=== PATIENT | male | born 1965 | race Caucasian/White ===

== ENCOUNTER 2018-03-17 04:32 | Observation (INO) | payer OTHER ==
--- NOTE | 2018-03-17 04:33 | PDOC ---
History of Present Illness <Amber Lazaro - Last Filed: 03/17/18 06:19> - General History Source: Patient <Nicole Lynch - Last Filed: 03/19/18 22:01> - General Chief Complaint: Chest Pain Stated Complaint: CHEST PAINS Time Seen by Provider: 03/17/18 04:33 - History of Present Illness Initial Comments: 03/17/18 04:49 52 year old male woke up with midsternal chest pain radiating to the mid back with diaphoresis prior to arrival. patient received 2 nitro tabs and now reports pain is 7 out of 10. denies nausea/ vomiting, abdominal pain, shortness of breath. PMHX: [place] , hypertension, borderline diabetes Cardiology: dr. Callejas (Nicole Lynch) Past History <Amber Lazaro - Last Filed: 03/17/18 06:19> - Past Medical History HTN: Yes - Suicide/Smoking/Psychosocial Hx Smoking Status: No Smoking History: Never smoked Number of Cigarettes Smoked Daily: 0 <Nicole Lynch - Last Filed: 03/19/18 22:01> - Past Medical History Allergies/Adverse Reactions: Allergies Allergy/AdvReac Type Severity Reaction Status Date / Time No Known Allergies Allergy Verified 03/17/18 04:43 Home Medications: Ambulatory Orders Aspirin [ASA -] 81 mg PO DAILY 03/17/18 Losartan Potassium [Cozaar] 100 mg PO DAILY 03/17/18 *Physical Exam - Physical Exam General Appearance: Yes: Appropriately Dressed, Mild Distress Respiratory/Chest: positive: Lungs Clear, Normal Breath Sounds Cardiovascular: positive: Regular Rhythm, Regular Rate Gastrointestinal/Abdominal: positive: Normal Bowel Sounds, Soft Extremity: positive: Normal Capillary Refill, Normal Inspection, Normal Range of Motion Integumentary: positive: Normal Color, Dry, Warm Neurologic: positive: Fully Oriented, Alert <Nicole Lynch - Last Filed: 03/19/18 22:01> - Vital Signs Last Vital Signs Temp Pulse Resp BP Pulse Ox 98.1 F 71 18 147/92 98 03/19/18 21:11 03/19/18 21:11 03/19/18 21:11 03/19/18 21:11 03/19/18 21:00 Heart Score/ECG Review <Amber Lazaro - Last Filed: 03/17/18 06:19> - History History: Moderately suspicious - Electrocardiogram EKG: Non specific repolarization disturbance - Age Age: 45-65 - Risk Factors Risk Factors Heart Score: Yes Hx Hypercholesterolemia, Yes Hx Hypertension, Yes Hx Diabetes Based on the list above the patient has:: >/=3 risk factors or Hx atherosclerotic disease <Nicole Lynch - Last Filed: 03/19/18 22:01> - ECG Intrepretation Comment:: 03/17/18 04:59 NSR: 76 bpm inferolateral flipped Ts (Nicole Lynch) ED Treatment Course - LABORATORY CBC & Chemistry Diagram: 03/17/18 04:55 03/17/18 04:55 <Amber Lazaro - Last Filed: 03/17/18 06:19> - LABORATORY CBC & Chemistry Diagram: 03/17/18 04:55 03/19/18 05:30 <Nicole Lynch - Last Filed: 03/19/18 22:01> - ADDITIONAL ORDERS Additional order review: 03/17/18 04:55 RBC 4.21 MCV 93.4 MCHC 33.7 RDW 13.2 MPV 10.2 Neutrophils % 55.9 Lymphocytes % 33.3 Monocytes % 6.4 Eosinophils % 3.8 Basophils % 0.6 - RADIOLOGY Radiology Studies Ordered: Category Date Time Status CHEST PA & LAT [RAD] Stat Radiology 03/17/18 04:34 Completed - Medications Given in the ED: ED Medications Discontinued Medications Generic Name Dose Route Start Last Admin Trade Name Freq PRN Reason Stop Dose Admin Amlodipine Besylate 10 mg 03/17/18 10:47 03/17/18 10:59 Norvasc - PO 03/17/18 10:48 10 mg ONCE ONE Administration Amlodipine Besylate 5 mg 03/18/18 10:00 03/18/18 09:13 Norvasc - PO 5 mg DAILY TONNY Administration Amlodipine Besylate 5 mg 03/18/18 20:30 03/18/18 20:25 Norvasc - PO 03/18/18 20:31 5 mg NOW ONE Administration Aspirin 162 mg 03/17/18 04:54 03/17/18 05:15 Asa - PO 03/17/18 04:55 162 mg ONCE ONE Administration Atorvastatin Calcium 40 mg 03/17/18 10:15 03/17/18 11:00 Lipitor - PO 03/17/18 10:16 40 mg ONCE ONE Administration Heparin Sodium (Porcine) 5,000 unit 03/17/18 10:00 03/18/18 17:04 Heparin - SQ 5,000 unit Q8H-IV TONNY Administration Sodium Chloride 1,000 mls @ 75 mls/hr 03/17/18 12:30 03/17/18 15:56 Normal Saline - IV 03/18/18 00:29 75 mls/hr ASDIR TONNY Administration Labetalol HCl 10 mg 03/17/18 08:02 03/17/18 08:17 Normodyne Injection - IVPUSH 03/17/18 08:03 10 mg ONCE ONE Administration Labetalol HCl 100 mg 03/17/18 22:00 03/19/18 10:09 Normodyne - PO 100 mg BID TONNY Administration Labetalol HCl 100 mg 03/18/18 20:30 03/18/18 20:30 Normodyne - PO 03/18/18 20:31 100 mg NOW ONE Administration Losartan Potassium 100 mg 03/17/18 06:11 03/17/18 06:30 Cozaar - PO 03/17/18 06:12 100 mg ONCE ONE Administration Metoprolol Succinate 50 mg 03/17/18 06:55 03/17/18 07:33 Toprol Xl - PO 03/17/18 06:56 50 mg ONCE ONE Administration Metoprolol Tartrate 5 mg 03/17/18 06:55 03/17/18 07:33 Lopressor Injection - IVPUSH 03/17/18 06:56 5 mg ONCE ONE Administration Morphine Sulfate 4 mg 03/17/18 04:53 03/17/18 05:15 Morphine Injection - IVPUSH 03/17/18 04:54 4 mg ONCE ONE Administration Morphine Sulfate 0.5 mg 03/18/18 00:51 03/18/18 01:01 Morphine Sulfate IVPUSH 03/18/18 00:52 0.5 mg ONCE ONE Administration Medical Decision Making <Amber Lazaro - Last Filed: 03/17/18 06:19> <Nicole Lynch - Last Filed: 03/19/18 22:01> - Medical Decision Making 03/17/18 05:33 A: chest pain P; chest xray labs morphine aspirin oxygen obs admit? 03/17/18 06:58 pending sign out to hospitalist team 07: 00 patient pending dispo signed out to Rossana MCDOWELL (Nicole Lynch) *DC/Admit/Observation/Transfer - Discharge Dispostion Decision to Admit order: Yes <Amber Lazaro - Last Filed: 03/17/18 06:19> <Nicole Lynch - Last Filed: 03/19/18 22:01> Diagnosis at time of Disposition: Hypertensive crisis Chest pain Qualifiers: Chest pain type: other chest pain Qualified Code(s): R07.89 - Other chest pain - Discharge Dispostion Condition at time of disposition: Stable
[2018-03-17] MEDS ORDERED: morphine CARPU-JECT 4 MG/1 ML DISP.SYRIN IVPUSH ONE (04:53)
[2018-03-17] MEDS ORDERED: ASPIRIN 81 MG CHEWABLE TABLETS PO ONE (04:54)
[2018-03-17] MEDS ORDERED: ASPIRIN 81 MG CHEWABLE TABLETS ONE (05:04)
[2018-03-17] MEDS ORDERED: morphine SULFATE 4 MG/ML VIAL ONE (05:04)
[2018-03-17 05:09] LABS: BASO % 0.6 % (0-2.0); EOS % 3.8 % (0-4.5); HEMATOCRIT 39.3 % (35.4-49); HEMOGLOBIN 13.3 GM/dL (11.7-16.9); LYMPH % 33.3 % (8-40); MCH 31.5 pg (25.7-33.7); MCHC 33.7 g/dl (32.0-35.9); MEAN CELL VOLUME 93.4 fl (80-96); MEAN PLT VOLUME 10.2 fl (7.5-11.1); MONO % 6.4 % (3.8-10.2); NEUT % 55.9 % (42.8-82.8); PLATELET COUNT 172 K/MM3 (134-434); RBC 4.21 M/mm3 (4.00-5.60); RDW 13.2 % (11.9-15.9); WHITE BLOOD COUNT 6.4 K/mm3 (4.0-10.0)
[2018-03-17 05:22] LABS: INR 0.88 (0.83-1.09)
[2018-03-17 05:39] LABS: ALBUMIN 3.8 g/dl (3.4-5.0); ALK PHOS 81 U/L (45-117); ANION GAP 9 MMOL/L (8-16); BILIRUBIN,TOTAL 0.3 mg/dL (0.2-1); BLOOD UREA NITROGEN 20 mg/dL (7-18); CALCIUM 8.8 mg/dL (8.5-10.1); CHLORIDE 104 mmol/L (98-107); CO2 28 mmol/L (21-32); CREATININE 1.5 mg/dL (0.55-1.3); GLUCOSE,RANDOM 127 mg/dL (74-106); MAGNESIUM 2.2 mg/dL (1.8-2.4); N-TERMINAL BNP 63.7 pg/ml (5-125); POTASSIUM 3.5 mmol/L (3.5-5.1); SGOT/AST 14 U/L (15-37); SGPT/ALT 34 U/L (13-61); SODIUM 142 mmol/L (136-145); TOT PROT 6.9 g/dl (6.4-8.2)
[2018-03-17] MEDS ORDERED: LOSARTAN POTASSIUM 50 MG TABLET (FP) PO ONE (06:11)
[2018-03-17] MEDS ORDERED: METOPROLOL TARTRATE 5 MG/5 ML VIAL IVPUSH ONE (06:55)
[2018-03-17] MEDS ORDERED: METOPROLOL TARTRATE 50 MG TABLET (FP) ONE (07:21)
[2018-03-17] MEDS ORDERED: METOPROLOL TARTRATE 5 MG/5 ML VIAL ONE (07:21)
[2018-03-17] MEDS ORDERED: LABETALOL HCL 5 MG/1 ML (100MG/20 ML VIAL) IVPUSH ONE (08:02)
--- NOTE | 2018-03-17 08:08 | HP ---
CHIEF COMPLAINT: left upper back pain/chest pain PCP: none Cardio: Dr. Callejas HISTORY OF PRESENT ILLNESS: 52 yr old man with HTN, hx of AR(12 yrs ago) present with sudden onset of left upper back pain radiating to his left arm that woke him from sleep at 3AM, it was 10/10, continuous, aching, lasting until he received nitroglycerin by EMT, pain is reproducible and nonpositional. associated with dizziness. was in his usual state of health yesterday, without any complaints. denies recent strenous activities, high salt dietary indiscretions. was on tribenzor for past 2 yrs but had to stop due to loss of insurance coverage. started on losartan 100mg daily for past 3 months. takes ASA 81mg 2- 3x a week. 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 all healthy Smoking:never Alcohol:denies Drugs: never Family History: mother with type II DM, father 85yrs olf without medical hx, paternal uncle with AR age 58, Allergies No Known Allergies Allergy (Verified 03/17/18 04:43) HOME MEDICATIONS: Home Medications Medication Instructions Recorded Aspirin [ASA -] 81 mg PO DAILY 03/17/18 Losartan Potassium [Cozaar] 100 mg PO DAILY 03/17/18 REVIEW OF SYSTEMS CONSTITUTIONAL: Absent: fever, chills, diaphoresis, generalized weakness, malaise, loss of appetite, weight change HEENT: Absent: rhinorrhea, nasal congestion, throat pain, throat swelling, difficulty swallowing, mouth swelling, ear pain, eye pain, visual changes CARDIOVASCULAR: Absent: chest pain, syncope, palpitations, irregular heart rate, lightheadedness , peripheral edema RESPIRATORY: Absent: cough, shortness of breath, dyspnea with exertion, orthopnea, wheezing, stridor, hemoptysis GASTROINTESTINAL: Absent: abdominal pain, abdominal distension, nausea, vomiting, diarrhea, constipation, melena, hematochezia GENITOURINARY: Absent: dysuria, frequency, urgency, hesitancy, hematuria, flank pain MUSCULOSKELETAL: Present: back pain, Absent: myalgia, arthralgia, joint swelling, neck pain SKIN: Absent: rash, itching, pallor HEMATOLOGIC/IMMUNOLOGIC: Absent: easy bleeding, easy bruising, lymphadenopathy, frequent infections ENDOCRINE: Absent: unexplained weight gain, unexplained weight loss, heat intolerance, cold intolerance NEUROLOGIC: Present: dizziness, Absent: headache, focal weakness or paresthesias, unsteady gait, seizure, mental status changes, bladder or bowel incontinence PSYCHIATRIC: Absent: anxiety, depression, suicidal or homicidal ideation, hallucinations. PHYSICAL EXAMINATION Vital Signs - 24 hr 03/17/18 03/17/18 03/17/18 04:37 05:20 06:31 Temperature 98.2 F Pulse Rate [ 77 75 Left Radial] Respiratory 79 H 16 17 Rate Blood Pressure 162/97 Blood Pressure 172/104 169/111 [Right Arm] O2 Sat by Pulse 96 97 98 Oximetry (%) 03/17/18 03/17/18 03/17/18 07:33 07:34 07:48 Temperature Pulse Rate [ 67 Left Radial] Respiratory 14 Rate Blood Pressure 170/110 Blood Pressure 170/110 [Right Arm] O2 Sat by Pulse 96 96 Oximetry (%) GENERAL: Awake, alert, and fully oriented, in no acute distress. HEAD: Normal with no signs of trauma. EYES: Pupils equal, round and reactive to light, extraocular movements intact, sclera anicteric, conjunctiva clear. No lid lag. EARS, NOSE, THROAT: Ears normal, nares patent, oropharynx clear without exudates. Moist mucous membranes. NECK: Normal range of motion, supple without lymphadenopathy, JVD, or masses. LUNGS: Breath sounds equal, clear to auscultation bilaterally. No wheezes, and no crackles. No accessory muscle use. HEART: Regular rate and rhythm, normal S1 and S2 without murmur, rub or gallop. ABDOMEN: Soft, nontender, not distended, normoactive bowel sounds, no guarding, no rebound, no masses. No hepatomegaly or splenomegaly. MUSCULOSKELETAL: Normal range of motion at all joints. No bony deformities or tenderness. No CVA tenderness. left scapula and below scapula region tender to deep palpation. left shoulder pain with movement. no swelling, erythema, or warmth. skin is intact. UPPER EXTREMITIES: 2+ radal pulses, warm, well-perfused. No cyanosis. No clubbing. No peripheral edema. LOWER EXTREMITIES: 2+ DP pulses, warm, well-perfused. No calf tenderness. No peripheral edema. NEUROLOGICAL: Cranial nerves II-XII intact. Normal speech. facial symmetry, 5/ 5 with b/l handgrip, shoulder/elbow extension and flexion. PSYCHIATRIC: Cooperative. Good eye contact. Appropriate mood and affect. SKIN: Warm, dry, normal turgor, no rashes or lesions noted, normal capillary refill. Laboratory Results - last 24 hr 03/17/18 03/17/18 03/17/18 04:55 04:55 04:55 WBC 6.4 RBC 4.21 Hgb 13.3 Hct 39.3 MCV 93.4 MCH 31.5 MCHC 33.7 RDW 13.2 Plt Count 172 MPV 10.2 Absolute Neuts (auto) 3.6 Neutrophils % 55.9 Lymphocytes % 33.3 Monocytes % 6.4 Eosinophils % 3.8 Basophils % 0.6 Nucleated RBC % 0 PT with INR 10.00 INR 0.88 Sodium 142 Potassium 3.5 Chloride 104 Carbon Dioxide 28 Anion Gap 9 BUN 20 H Creatinine 1.5 H Creat Clearance w eGFR 49.15 Random Glucose 127 H Calcium 8.8 Magnesium 2.2 Total Bilirubin 0.3 AST 14 L ALT 34 Alkaline Phosphatase 81 Creatine Kinase 186 Creatine Kinase Index 0.5 CK-MB (CK-2) < 1.0 Troponin I 0.02 B-Natriuretic Peptide 63.7 Total Protein 6.9 Albumin 3.8 ASSESSMENT/PLAN: 52 yr old man with left upper back pain found to have uncontrolled elevated BP placed on observation to r/o ACS and control BP. #r/o ACS, heart score 5, JUSTIN 1 - trend cardiac enzymes, repeat EKG - check lipid profile and A1c for risk stratification, start on statin and daily ASA - continuous cardiac monitoring - pain control with tylenol 650mg po if pt requests - cardiology consult: Dr. Perez #HTN Urgency - received labetalol IVPB 10mg, metoprolol 50mg po, losartan 100mg po, amlodipine - hold ARB due to STACIA, if continues to stay elevated consider nitroglycerin patch for pain and BP - goal to decr BP gradually over 24hrs to 150/80 #STACIA - likely pre-renal from elevated BP - if continuous to worsen will investigate further with u/a, renal ultrasound - given elevated BP, encourage oral hydration #Diet: low sodium/diabetic diet # DVT: heparin TID Visit type - Emergency Visit Emergency Visit: Yes ED Registration Date: 03/17/18 Care time: The patient presented to the Emergency Department on the above date and was hospitalized for further evaluation of their emergent condition. - New Patient This patient is new to me today: Yes Date on this admission: 03/17/18 - Critical Care Critical Care patient: No Hospitalist Screening - Colonoscopy Questionnaire Colonoscopy Questionnaire: Colonoscopy Questionnaire - Patient: 50 - 75 years old and never had a screening colonoscopy: Yes History of colon or rectal polyps, or CA: Unknown History of IBD, Crohn's disease or UC: Unknown History of abdominal radiation therapy as a child: Unknown - Relative: 1 with colon or rectal CA, or polyps at age 60 or younger: Unknown Colon or rectal CA diagnosed at age 45 or younger: Unknown Multiple relatives with colon or rectal CA: Unknown - Outcome: Screening Result: Positive Screen
[2018-03-17] MEDS ORDERED: LABETALOL HCL 5 MG/1 ML (200MG/40ML VIAL) IVPB ONE (08:10)
[2018-03-17 09:22] LABS: CHOLESTEROL 201 mg/dL (50-200); HDL CHOLESTEROL 45 mg/dL (40-60); TRIGLYCERIDES 172 mg/dL (0-150)
[2018-03-17] MEDS ORDERED: HEPARIN NA (PORCINE) 5,000 UNITS/ML 1ML VIAL ONE (10:04)
[2018-03-17] MEDS: HEPARIN NA (PORCINE) 5,000 UNITS/ML 1ML VIAL SQ SCH ×2 (10:14→17:27)
[2018-03-17] MEDS ORDERED: ATORVASTATIN CA 40 MG TABLET (FP) PO ONE (10:15)
--- NOTE | 2018-03-17 10:45 | CON.CARD ---
Consult Consult Specialty:: Cardiology Referred by:: Leti Reason for Consultation:: chest pain - History of Present Illness Chief Complaint: chest pain History of Present Illness: 52M h/o HTN, NC 12 years ago p/w l upper back pain radiating to L arm, woke up from sleep this morning at 3 AM. 04/04, continuous, improved wtih NTG. Pain is not positional. no dyspnea, diaphoresis. Has h/o HTN, poor diet compliance and history of med noncompliance but endorses taking meds currently. In the ER rios improved with morphine. EKG shows sinus mikey, LVH, 1st deg AVB, TWI V5- 6. BP 170s/100s. Received labetolol 10 mg IV, metoprolol 50 mg PO and losartan 100 mg. Cr 1.5. His primary complaint is back/left shoulder pain, per patient this was worse than usual last night but has had for at least a year. also notes an episode yesterday of bilateral jaw pain radiating to L arm. He had this years ago and says at that time a cath. reportedly this was for NC, but patient now denies this. Sees Dr. Callejas in clinic. - History Source History Provided By: Patient - Past Medical History Cardio/Vascular: Yes: HTN - Alcohol/Substance Use Hx Alcohol Use: No - Smoking History Smoking history: Never smoked Have you smoked in the past 12 months: No Aproximately how many cigarettes per day: 0 Home Medications - Allergies Allergies/Adverse Reactions: Allergies Allergy/AdvReac Type Severity Reaction Status Date / Time No Known Allergies Allergy Verified 03/17/18 04:43 - Home Medications Home Medications: Ambulatory Orders Aspirin [ASA -] 81 mg PO DAILY 03/17/18 Losartan Potassium [Cozaar] 100 mg PO DAILY 03/17/18 Family Disease History - Family Disease History Family History: Unremarkable Review of Systems - Review of Systems Constitutional: reports: No Symptoms Eyes: reports: No Symptoms HENT: reports: No Symptoms Neck: reports: No Symptoms Cardiovascular: reports: Chest Pain, Shortness of Breath Respiratory: reports: No Symptoms Gastrointestinal: reports: No Symptoms Genitourinary: reports: No Symptoms Musculoskeletal: reports: Back Pain, Joint Pain Integumentary: reports: No Symptoms Neurological: reports: No Symptoms Endocrine: reports: No Symptoms Hematology/Lymphatic: reports: No Symptoms Psychiatric: reports: No Symptoms Vital Signs: Vital Signs Temperature 98.2 F 03/17/18 10:16 Pulse Rate 62 03/17/18 10:16 Respiratory Rate 16 03/17/18 10:16 Blood Pressure 171/105 03/17/18 10:16 O2 Sat by Pulse Oximetry (%) 97 03/17/18 10:16 Constitutional: Yes: Well Nourished, No Distress Eyes: Yes: Conjunctiva Clear, EOM Intact HENT: Yes: Atraumatic, Normocephalic Neck: Yes: Supple, Trachea Midline Respiratory: Yes: Regular, CTA Bilaterally Gastrointestinal: Yes: Normal Bowel Sounds, Soft Renal/: Yes: WNL Cardiovascular: Yes: Regular Rate and Rhythm JVD: No Carotid Bruit: No Heart Sounds: Yes: S1, S2 Musculoskeletal: Yes: Back Pain Extremities: Yes: WNL Edema: No Peripheral Pulses WNL: Yes Peripheral Pulses: 2+ Left Doralis Pedis, 2+ Right Dorsalis Pedis Integumentary: Yes: WNL Neurological: Yes: Alert, Oriented ...Motor Strength: WNL Psychiatric: Yes: Alert, Oriented - Other Data Labs, Other Data: CBC, BMP 03/17/18 04:55 03/17/18 04:55 INR, PTT INR 0.88 (0.83-1.09) 03/17/18 04:55 Troponin, BNP 03/17/18 04:55 Troponin I 0.02 B-Natriuretic Peptide 63.7 Troponin, BNP 03/17/18 04:55 Troponin I 0.02 B-Natriuretic Peptide 63.7 Assessment/Plan EKG: sinus bradycardia, 1st deg AVB, LVH, TWI V5-V6 CXR: no acute process 52M h/o HTN, NC 12 years ago p/w l upper back pain radiating to L arm Chest/back pain - trop neg x 2, no prior EKG for comparision since 2003, TWI noted - no prior EKG for comparison - back pain is chronic and appears musculoskeletal, reproducible with palpation and worsens with position - episode of jaw pain with diaphoresis and sob history concerning for cardiac etiology - will obtain clinic records, patient thinks he had a stress test in last 1- 2years HTN - on metoprolol, amlodipine - holding home losartan in setting of STACIA, baseline Cr not known HLD - reviewed lipid panel, agree with moderate intensity statin STACIA - baselne Cr unknown - holding losartan
[2018-03-17] MEDS ORDERED: amLODIPine BESYLATE 10 MG TABLET (FP) PO ONE (10:47)
[2018-03-17 11:34] VITALS: BMI 34.8
[2018-03-17] MEDS: ACETAMINOPHEN 325 MG TABLET (FP) PO PRN ×2 (12:09→19:35)
[2018-03-17] MEDS ORDERED: SODIUM CHLORIDE 1,000 ML IV SCH (12:30)
--- NOTE | 2018-03-17 12:31 | PN ---
Teaching Attending Note Name of Resident: Neel Padron ATTENDING PHYSICIAN STATEMENT I saw and evaluated the patient. I reviewed the resident's note and discussed the case with the resident. I agree with the resident's findings and plan as documented. SUBJECTIVE: very poor historian 52 y/o man with h/o NM, HTN, HLP, and chronic L upper back pain who presented with worsening L upper shoulder pain, and severe hypertension . reports chronic L upper posterior chest pain, which was worse this am at 3 and woke him up form sleep. He checked his BP ans was > 200/100. he experienced 30 min of pressure in his anterior neck this am and that's when he randolph dEMS. Nitro helped partially. pain in L upper back is in shoulder too. he reprts sweating and SOB when pain happened. in ER he was given severeal Iv and PO BP meds and ASA . He had NM 12 yrs ago, and had cath in [facility], per family report is neg . he thinks he had a stress test 1 yr ago, and declines regular f/u withhis PCP. he uses ASA 3 times a week . not on any statin.of note he recently ( 3 months) was switched to losartan due to insurance coverage. Now on floor, L posterior shoulder pain persists, but neck pain and sweating is no longer present . No SOB or palpitations OBJECTIVE: NAD, MMM, EOMi, round equal pupils, tongue at mid line . Cv: RRR, no MRG lungs: CTAB Abd: soft, NT, ND , NL BS, Ext: no edema , no erythema , no fungal infection MS: TTP in L upper posterior back and worse with shoulder movement. no erythema or shoulder effusion ASSESSMENT AND PLAN: 52 y/o man with h/o NM, HTN, HLP, and chronic L upper back pain who presented with worsening L upper shoulder pain, and severe hypertension . He was found to have severe hypertension and renal failure 1- HTN urgency. Not clear if renal failure is acute ( ? HTN emergency). SBP 200 at home ,171 now - received norvasc , and po lsartan . and IV labetalol and lopressor . - will hold losartan due to ? STACIA - will start labetalol and norvasc - slowly drop BP - will monitor for need for additionsla treatments today 2- Chest pain: L posterior shoulder pain in chronic , reproducible and not concerning for ACS. could be due to pinched nerve the 30 min neck pressure this am in setting of HTN, is concerning though. EKG with TWI in inferiolateral leads. not clear if new or old. J point elevation in V2 - repeat EKG not changes . - trop nl x1 , repeat - tele - case d/w Dr. Gerard. ast stress test results to be obtained form office . if not recent enough then might need one and echo too . - asa daily - start statin. hyperlipidemia noted - BP control 3- Renal failure , not clear whether acute or chronic. will try to obtain records. could be due to HTN . - try gentle hydration - hold ARB 4- DVT Px 4- DVT PX
--- NOTE | 2018-03-17 15:26 | EKG ---
Test Reason : Blood Pressure : / mmHG Vent. Rate : 059 BPM Atrial Rate : 059 BPM P-R Int : 222 ms QRS Dur : 094 ms QT Int : 430 ms P-R-T Axes : 047 033 032 degrees QTc Int : 425 ms SINUS BRADYCARDIA WITH 1ST DEGREE A-V BLOCK MINIMAL VOLTAGE CRITERIA FOR LVH, MAY BE NORMAL VARIANT CANNOT RULE OUT ANTERIOR INFARCT , AGE UNDETERMINED ABNORMAL ECG WHEN COMPARED WITH ECG OF 17-MAR-2018 08:26, NO SIGNIFICANT CHANGE WAS FOUND Confirmed by MD Jomar, Henri ([id number]) on 03/17/2018 3:26:27 PM Referred By: Confirmed By:Henri Hadley MD
--- NOTE | 2018-03-17 15:28 | EKG ---
Test Reason : Blood Pressure : / mmHG Vent. Rate : 066 BPM Atrial Rate : 066 BPM P-R Int : 200 ms QRS Dur : 090 ms QT Int : 414 ms P-R-T Axes : 041 033 026 degrees QTc Int : 434 ms NORMAL SINUS RHYTHM MINIMAL VOLTAGE CRITERIA FOR LVH, MAY BE NORMAL VARIANT NONSPECIFIC T WAVE ABNORMALITY ABNORMAL ECG WHEN COMPARED WITH ECG OF 17-MAR-2018 04:32, NO SIGNIFICANT CHANGE WAS FOUND Confirmed by MD Jomar, Henri ([id number]) on 03/17/2018 3:27:34 PM Referred By: Confirmed By:Henri Hadley MD
--- NOTE | 2018-03-17 15:28 | EKG ---
Test Reason : Blood Pressure : / mmHG Vent. Rate : 076 BPM Atrial Rate : 076 BPM P-R Int : 178 ms QRS Dur : 088 ms QT Int : 412 ms P-R-T Axes : 045 033 -77 degrees QTc Int : 463 ms NORMAL SINUS RHYTHM T WAVE ABNORMALITY, CONSIDER LATERAL ISCHEMIA PROLONGED QT ABNORMAL ECG WHEN COMPARED WITH ECG OF 12-MAY-2005 07:48, NON-SPECIFIC CHANGE IN ST SEGMENT IN INFERIOR LEADS ST LESS ELEVATED IN ANTERIOR LEADS NON-SPECIFIC CHANGE IN ST SEGMENT IN LATERAL LEADS Confirmed by MD Jomar, Henri ([id number]) on 03/17/2018 3:27:46 PM Referred By: Confirmed By:Henri Hadley MD
[2018-03-17] MEDS: LABETALOL HCL 100 MG TABLET (FP) PO SCH (21:14)
[2018-03-18] MEDS ORDERED: MORPHINE SULFATE 2 MG/ML VIAL IVPUSH ONE (00:51)
[2018-03-18] MEDS: HEPARIN NA (PORCINE) 5,000 UNITS/ML 1ML VIAL SQ SCH ×4 (01:22→23:30)
[2018-03-18 06:51] LABS: ANION GAP 8 MMOL/L (8-16); BLOOD UREA NITROGEN 15 mg/dL (7-18); CALCIUM 8.9 mg/dL (8.5-10.1); CHLORIDE 102 mmol/L (98-107); CO2 29 mmol/L (21-32); CREATININE 1.1 mg/dL (0.55-1.3); GLUCOSE,RANDOM 107 mg/dL (74-106); POTASSIUM 4.4 mmol/L (3.5-5.1); SODIUM 140 mmol/L (136-145)
[2018-03-18] MEDS: ACETAMINOPHEN 325 MG TABLET (FP) PO PRN (08:38)
[2018-03-18] MEDS: LABETALOL HCL 100 MG TABLET (FP) PO SCH ×2 (09:13→20:26)
[2018-03-18] MEDS ORDERED: amLODIPine BESYLATE 5 MG TABLET (FP) PO SCH (10:00)
--- NOTE | 2018-03-18 10:23 | PN ---
Progress Note (short form) - Note Progress Note: s: feels better today. no chest pain, palps, dizzy, dyspnea. has L arm pain. tele: sinus Current Medications Acetaminophen (Tylenol -) 650 mg PO Q6H PRN PRN Reason: Fever Or Pain Last Admin: 03/18/18 08:38 Dose: 650 mg Amlodipine Besylate (Norvasc -) 5 mg PO DAILY [facility] Last Admin: 03/18/18 09:13 Dose: 5 mg Atorvastatin Calcium (Lipitor -) 40 mg PO HS [facility] Heparin Sodium (Porcine) (Heparin -) 5,000 unit SQ Q8H-IV TONNY Last Admin: 03/18/18 09:13 Dose: 5,000 unit Sodium Chloride (Normal Saline -) 1,000 mls @ 75 mls/hr IV ASDIR [facility] Last Admin: 03/17/18 15:56 Dose: 75 mls/hr Labetalol HCl (Normodyne -) 100 mg PO BID [facility] Last Admin: 03/18/18 09:13 Dose: 100 mg Vital Signs Period Temp Pulse Resp BP Sys/Laws Pulse Ox Last 24 Hr 97.8 F-98.5 F 60-71 18-18 141-161/88-102 97-97 Constitutional: Yes: Well Nourished, No Distress Eyes: Yes: Conjunctiva Clear, EOM Intact HENT: Yes: Atraumatic, Normocephalic Neck: Yes: Supple, Trachea Midline Respiratory: Yes: Regular, CTA Bilaterally Gastrointestinal: Yes: Normal Bowel Sounds, Soft Renal/: Yes: WNL Cardiovascular: Yes: Regular Rate and Rhythm JVD: No Carotid Bruit: No Heart Sounds: Yes: S1, S2 Musculoskeletal: Yes: Back Pain Extremities: Yes: WNL Edema: No Peripheral Pulses WNL: Yes Peripheral Pulses: 2+ Left Doralis Pedis, 2+ Right Dorsalis Pedis Integumentary: Yes: WNL Neurological: Yes: Alert, Oriented ...Motor Strength: WNL Psychiatric: Yes: Alert, Oriented Assessment/Plan EKG: sinus bradycardia, 1st deg AVB, LVH, TWI V5-V6 CXR: no acute process echo 05/2017 tds, LV nl size, mild conc lvh, nl LV function, nl LA pressure, RV nl size and function, mild MR LHC 2003 normal cors, nl EDP, nl EF stress echo 2015 exercised 7:03 min, no ischemia prior EKGs with TWI 52M h/o HTN, [place] 12 years ago p/w l upper back pain radiating to L arm Chest/back pain - trop neg x 2, no prior EKG for comparision since 2003, TWI noted - no prior EKG for comparison - back pain is chronic and appears musculoskeletal, reproducible with palpation and worsens with position - episode of jaw pain with diaphoresis and sob history concerning for cardiac etiology - nuclear stress and echocardiogram ordered HTN - on amlodipine, BP improving - holding home losartan in setting of STACIA, Cr improved HLD - reviewed lipid panel, agree with moderate intensity statin STACIA -Cr noted in office 1.14 05/2016 - improved - losartan was held
--- NOTE | 2018-03-18 13:04 | PN ---
Progress Note (short form) - Note Progress Note: Subjective: No fever or chills. NO abd pain, no CP. still has L posterior chest pain, which is better. No palpitations Objective: Vital Signs: Last Vital Signs Temp Pulse Resp BP Pulse Ox 98.2 F 67 18 151/89 97 03/18/18 06:43 03/18/18 06:43 03/18/18 09:00 03/18/18 06:43 03/18/18 09:00 Laboratory Results - last 24 hr 03/18/18 05:03 Sodium 140 Potassium 4.4 Chloride 102 Carbon Dioxide 29 Anion Gap 8 BUN 15 Creatinine 1.1 Creat Clearance w eGFR > 60 Random Glucose 107 H Calcium 8.9 Physical Exam: NAD, MMM, EOMI, round equal pupils, tongue at mid line . Cv: RRR, no MRG lungs: CTAB Abd: soft, NT, ND , NL BS, Ext: no edema , no erythema , no fungal infection MS: TTP in L upper posterior back and worse with shoulder movement. no erythema or shoulder effusion ASSESSMENT AND PLAN: 52 y/o man with h/o NC, HTN, HLP, and chronic L upper back pain who presented with worsening L upper shoulder pain, and severe hypertension . He was found to have severe hypertension and renal failure 1- HTN emergency ( STACIA ). improved. - cont labetalol and norvasc for now - if renal function remain stable, then losartan can be resumed instead of labetalol 2- Chest pain: L posterior shoulder pain in chronic and not concerning. Anterior neck pressure is concerning. - Stress tomorrow - Echo - ASA daily - cont statin 3- STACIA: likely due to severe HTn and possible pre-renal component - cont IVF. dc tomorrow - cont to hold ARB 4- DVT Px Possible dc tomorrow if stress is NL Visit type - Emergency Visit Emergency Visit: Yes ED Registration Date: 03/17/18 Care time: The patient presented to the Emergency Department on the above date and was hospitalized for further evaluation of their emergent condition. - New Patient This patient is new to me today: No - Critical Care Critical Care patient: No
[2018-03-18] MEDS ORDERED: LABETALOL HCL 100 MG TABLET (FP) PO ONE (20:30)
[2018-03-18] MEDS ORDERED: amLODIPine BESYLATE 5 MG TABLET (FP) PO ONE (20:30)
[2018-03-18] MEDS: ATORVASTATIN CA 40 MG TABLET (FP) PO SCH (21:28)
[2018-03-19] MEDS: HEPARIN NA (PORCINE) 5,000 UNITS/ML 1ML VIAL SQ SCH ×3 (06:21→22:05)
[2018-03-19 07:08] LABS: ANION GAP 7 MMOL/L (8-16); BLOOD UREA NITROGEN 15 mg/dL (7-18); CALCIUM 8.8 mg/dL (8.5-10.1); CHLORIDE 102 mmol/L (98-107); CO2 30 mmol/L (21-32); CREATININE 1.1 mg/dL (0.55-1.3); GLUCOSE,RANDOM 97 mg/dL (74-106); POTASSIUM 4.1 mmol/L (3.5-5.1); SODIUM 138 mmol/L (136-145)
[2018-03-19] MEDS: amLODIPine BESYLATE 10 MG TABLET (FP) PO SCH (10:09)
[2018-03-19] MEDS: LABETALOL HCL 100 MG TABLET (FP) PO SCH (10:09)
--- NOTE | 2018-03-19 10:49 | PN ---
Progress Note (short form) - Note Progress Note: s: feels well. no chest pain, sob, palps, dizziness, lightheadedness. tele: sinus Current Medications Acetaminophen (Tylenol -) 650 mg PO Q6H PRN PRN Reason: Fever Or Pain Last Admin: 03/18/18 08:38 Dose: 650 mg Amlodipine Besylate (Norvasc -) 10 mg PO DAILY [facility] Last Admin: 03/19/18 10:09 Dose: 10 mg Atorvastatin Calcium (Lipitor -) 40 mg PO HS [facility] Last Admin: 03/18/18 21:28 Dose: 40 mg Heparin Sodium (Porcine) (Heparin -) 5,000 unit SQ TID [facility] Last Admin: 03/19/18 06:21 Dose: 5,000 unit Labetalol HCl (Normodyne -) 100 mg PO BID [facility] Last Admin: 03/19/18 10:09 Dose: 100 mg Vital Signs Period Temp Pulse Resp BP Sys/Laws Pulse Ox Last 24 Hr 97.3 F-98.4 F 63-78 18-18 144-187/85-119 97-97 Constitutional: Yes: Well Nourished, No Distress Eyes: Yes: Conjunctiva Clear, EOM Intact HENT: Yes: Atraumatic, Normocephalic Neck: Yes: Supple, Trachea Midline Respiratory: Yes: Regular, CTA Bilaterally Gastrointestinal: Yes: Normal Bowel Sounds, Soft Renal/: Yes: WNL Cardiovascular: Yes: Regular Rate and Rhythm JVD: No Carotid Bruit: No Heart Sounds: Yes: S1, S2 Musculoskeletal: Yes: Back Pain Extremities: Yes: WNL Edema: No Peripheral Pulses WNL: Yes Peripheral Pulses: 2+ Left Doralis Pedis, 2+ Right Dorsalis Pedis Integumentary: Yes: WNL Neurological: Yes: Alert, Oriented ...Motor Strength: WNL Psychiatric: Yes: Alert, Oriented Assessment/Plan EKG: sinus bradycardia, 1st deg AVB, LVH, TWI V5-V6 CXR: no acute process echo 05/2017 tds, LV nl size, mild conc lvh, nl LV function, nl LA pressure, RV nl size and function, mild MR LHC 2003 normal cors, nl EDP, nl EF stress echo 2014 exercised 7:03 min, no ischemia prior EKGs with TWI 52M h/o HTN, [place] 12 years ago p/w l upper back pain radiating to L arm Chest/back pain - trop neg x 2, no prior EKG for comparision since 2003, TWI noted - no prior EKG for comparison - back pain is chronic and appears musculoskeletal, reproducible with palpation and worsens with position - episode of jaw pain with diaphoresis and sob history concerning for cardiac etiology - echo pending - patient refused nuclear stress test, stress echo ordered, per patient he can walk on treadmill HTN - on amlodipine, BP improving - holding home losartan in setting of STACIA, Cr improved - would restart losartan and dc labetalol for improved BP control HLD - reviewed lipid panel, agree with moderate intensity statin STACIA -Cr noted in office 1.14 05/2016 - improved - losartan was held
--- NOTE | 2018-03-19 15:05 | PN ---
Teaching Attending Note Name of Resident: Azra Fierro ATTENDING PHYSICIAN STATEMENT I saw and evaluated the patient. I reviewed the resident's note and discussed the case with the resident. I agree with the resident's findings and plan as documented. SUBJECTIVE: No fever or chills . No CP , shoulder pain has resolved OBJECTIVE: NAD. CV: RRR, no MRG lungs: CTAB no TTP over shoulder , back or chest ASSESSMENT AND PLAN: 52 y/o man with h/o NC, HTN, HLP, and chronic L upper back pain who presented with worsening L upper shoulder pain, and severe hypertension . He was found to have severe hypertension and renal failure 1- HTN emergency . improved. - cont norvasc and resume losartan . dc labetalol 2- Chest pain: declined nuclear stress test - agreed to stress echo. follow results - Echo pending read - ASA daily - cont statin 3- STACIA: likely due to severe HTn and possible pre-renal component - dc IVF - resume losartan dispo : dc is ponding stress test and echo results d/w Dr. Perez
--- NOTE | 2018-03-19 18:01 | PN ---
Physical Exam: SUBJECTIVE: Patient seen and examined. Pt refused nucler stress test due to previous reaction. Was later taken down for stress ECHO (with TWI on EKG). No Chest pain or SOB, mild L sided back pain. Blood pressure still poorly controlled. Went as high as 187/119 was 144/93 by am. OBJECTIVE: Vital Signs Period Temp Pulse Resp BP Sys/Laws Pulse Ox Last 24 Hr 97.3 F-98.3 F 63-71 18-20 144-187/79-119 97-97 GENERAL: The patient is awake, alert, and fully oriented, in no acute distress. NECK: full range of motion, supple, no obvious masses. LUNGS: Breath sounds equal, clear to auscultation bilaterally HEART: Regular rate and rhythm, S1, S2 without murmur, ABDOMEN: Soft, nontender, nondistended, normoactive bowel sounds EXTREMITIES: 2+ pulses, warm, well-perfused, no edema. NEUROLOGICAL: Symmetric face, normal strength and tone globally, Normal speech, normal gait. SKIN: Warm, dry, normal turgor, no rashes or lesions noted. Shoulder swelling or tenderness. Laboratory Results - last 24 hr 03/19/18 05:30 Sodium 138 Potassium 4.1 Chloride 102 Carbon Dioxide 30 Anion Gap 7 L BUN 15 Creatinine 1.1 Creat Clearance w eGFR > 60 Random Glucose 97 Calcium 8.8 Active Medications Generic Name Dose Route Start Last Admin Trade Name Freq PRN Reason Stop Dose Admin Acetaminophen 650 mg 03/17/18 11:49 03/18/18 08:38 Tylenol - PO 650 mg Q6H PRN Administration Fever Or Pain Amlodipine Besylate 10 mg 03/19/18 10:00 03/19/18 10:09 Norvasc - PO 10 mg DAILY [facility]ONNY Administration Atorvastatin Calcium 40 mg 03/18/18 22:00 03/18/18 21:28 Lipitor - PO 40 mg HS TONNY Administration Heparin Sodium (Porcine) 5,000 unit 03/18/18 22:00 03/19/18 13:27 Heparin - SQ 5,000 unit TID [facility]ONNY Administration Losartan Potassium 100 mg 03/19/18 15:00 Cozaar - PO DAILY [facility] ASSESSMENT/PLAN: 52 y/o man with h/o AL, HTN, HLP, and chronic L upper back pain who presented with worsening L upper shoulder pain, and severe hypertension, and renal failure L back pain and anterior neck pressure r/o ACS, - Back pain resolved - trops -ve x2 - lipid profile - TG-172, Chol 201, total [id number], HDL-45 - A1c -5.5 - Cont lipitor 40 and daily ASA - continuous cardiac monitoring - cardiology consult: Dr. Perez HTN Emergency - received labetalol IVPB 10mg, metoprolol 50mg po, losartan 100mg po, amlodipine - Switch labetolol to losartan, cont [id number] - Monitor Chest pain: - Pt declined nuclear stress test (previous reaction) - agreed to stress echo. (EKG changes) pending read - Echo pending read - ASA daily - cont statin STACIA: -likely pre-renal from severe HTn - resume losartan FEN: -No standing fluids -Monitor lytes -low sodium/diabetic diet PPx: heparin TID Dispo: Pending reading of ECHO and stress ECHO for dc home Visit type - Emergency Visit Emergency Visit: Yes ED Registration Date: 03/17/18 Care time: The patient presented to the Emergency Department on the above date and was hospitalized for further evaluation of their emergent condition. - New Patient This patient is new to me today: Yes Date on this admission: 03/19/18 - Critical Care Critical Care patient: No - Discharge Referral Referred to [facility] Med [facility] No
[2018-03-19] MEDS: ATORVASTATIN CA 40 MG TABLET (FP) PO SCH (22:05)
[2018-03-19] MEDS: LOSARTAN POTASSIUM 50 MG TABLET (FP) PO SCH (22:05)
[2018-03-19] MEDS: ACETAMINOPHEN 325 MG TABLET (FP) PO PRN (22:08)
[2018-03-20] MEDS: HEPARIN NA (PORCINE) 5,000 UNITS/ML 1ML VIAL SQ SCH ×2 (06:27→16:21)
[2018-03-20] MEDS: amLODIPine BESYLATE 10 MG TABLET (FP) PO SCH (09:02)
[2018-03-20] MEDS: LOSARTAN POTASSIUM 50 MG TABLET (FP) PO SCH (09:02)
--- NOTE | 2018-03-20 11:22 | PN ---
Progress Note (short form) - Note Progress Note: s: feels well. no chest pain, sob, palps, dizziness, lightheadedness. tele: sinus Current Medications Acetaminophen (Tylenol -) 650 mg PO Q6H PRN PRN Reason: Fever Or Pain Last Admin: 03/19/18 22:08 Dose: 650 mg Amlodipine Besylate (Norvasc -) 10 mg PO DAILY [facility] Last Admin: 03/20/18 09:02 Dose: 10 mg Atorvastatin Calcium (Lipitor -) 40 mg PO HS [facility] Last Admin: 03/19/18 22:05 Dose: 40 mg Heparin Sodium (Porcine) (Heparin -) 5,000 unit SQ TID [facility] Last Admin: 03/20/18 06:27 Dose: 5,000 unit Losartan Potassium (Cozaar -) 100 mg PO DAILY [facility] Last Admin: 03/20/18 09:02 Dose: 100 mg Vital Signs Period Temp Pulse Resp BP Sys/Laws Pulse Ox Last 24 Hr 97.6 F-98.2 F 61-72 18-20 143-150/79-94 98-99 Constitutional: Yes: Well Nourished, No Distress Eyes: Yes: Conjunctiva Clear, EOM Intact HENT: Yes: Atraumatic, Normocephalic Neck: Yes: Supple, Trachea Midline Respiratory: Yes: Regular, CTA Bilaterally Gastrointestinal: Yes: Normal Bowel Sounds, Soft Renal/: Yes: WNL Cardiovascular: Yes: Regular Rate and Rhythm JVD: No Carotid Bruit: No Heart Sounds: Yes: S1, S2 Musculoskeletal: Yes: Back Pain Extremities: Yes: WNL Edema: No Peripheral Pulses WNL: Yes Peripheral Pulses: 2+ Left Doralis Pedis, 2+ Right Dorsalis Pedis Integumentary: Yes: WNL Neurological: Yes: Alert, Oriented ...Motor Strength: WNL Psychiatric: Yes: Alert, Oriented Assessment/Plan EKG: sinus bradycardia, 1st deg AVB, LVH, TWI V5-V6 CXR: no acute process echo 05/2017 tds, LV nl size, mild conc lvh, nl LV function, nl LA pressure, RV nl size and function, mild MR LHC 2003 normal cors, nl EDP, nl EF stress echo 2015 exercised 7:03 min, no ischemia prior EKGs with TWI 52M h/o HTN, [place] 12 years ago p/w l upper back pain radiating to L arm Chest/back pain - trop neg x 2, no prior EKG for comparision since 2003, TWI noted - no prior EKG for comparison - back pain is chronic and appears musculoskeletal, reproducible with palpation and worsens with position - episode of jaw pain with diaphoresis and sob history concerning for cardiac etiology - stress echo and echo done, reports pending - if benign findings on echo/stress echo no further cardiac testing as inpatient HTN - on amlodipine, BP improving - held home losartan in setting of STACIA, Cr improved - continue losartan and amlodipine HLD - continue statin STACIA -Cr noted in office 1.14 05/2016 - improved - losartan was held
--- NOTE | 2018-03-20 13:22 | ECHO ---
Name: NATHAN FARMER Exam:Adult Echocardiogram Study Date: 03/19/2018 07:34 AM Age: 52 yrs Reason For Study: Chest pain Height: 71 in Weight: 250 lb BSA: 2.3 m2 MMode/2D Measurements & Calculations IVSd: 1.1 cm Ao root diam: 2.9 cm LVIDd: 4.9 cm LA dimension: 3.9 cm LVIDs: 3.3 cm LVPWd: 1.4 cm EDV(Teich): 111.9 ml LAV (MOD-bp): 72.9 ml ESV(Teich): 43.8 ml Doppler Measurements & Calculations MV E max ramana: 74.7 cm/sec MR max ramana: 496.6 cm/sec MV A max ramana: 80.0 cm/sec MR max P.0 mmHg MV E/A: 0.93 MV dec time: 0.15 sec Med Peak E' Ramana: 5.3 cm/sec PI Vmax: 126.9 cm/sec Med E/e': 14.0 Lat Peak E' Ramana: 6.5 cm/sec Lat E/e': 11.4 Procedure The study was technically adequate with some images being suboptimal in quality. Left Ventricle The left ventricular size, thickness and function are normal. Grade I diastolic dysfunction, (abnorma l relaxation pattern). Right Ventricle The right ventricle is normal in size and function. Atria The left atrium is mildly dilated. Right atrial size is normal. Mitral Valve The mitral valve is grossly normal. There is trace mitral regurgitation. Tricuspid Valve The tricuspid valve is normal. There is trace tricuspid regurgitation. There was insufficient TR dete cted to calculate RV systolic pressure. Aortic Valve The aortic valve opens well. The aortic valve is trileaflet. No aortic regurgitation is present. Pulmonic Valve The pulmonic valve is not well visualized. Trace pulmonic valvular regurgitation. Great Vessels The aortic root is normal size. Pericardium/Pleura There is no pericardial effusion. Interpretation Summary There is no comparison study available. The left ventricular size, thickness and function are normal Grade I diastolic dysfunction, (abnormal relaxation pattern). The right ventricle is normal in size and function. There is trace mitral regurgitation. Trace pulmonic valvular regurgitation. There is trace tricuspid regurgitation. Alfred German MD 03/20/2018 01:21 PM
[2018-03-20 15:16] VITALS: BP 150/81; PULSE 75; TEMP 98
--- NOTE | 2018-03-20 16:04 | PN ---
Teaching Attending Note Name of Resident: Shanelle Balderas ATTENDING PHYSICIAN STATEMENT I saw and evaluated the patient. I reviewed the resident's note and discussed the case with the resident. I agree with the resident's findings and plan as documented. SUBJECTIVE: No fever or chills . No abd pain , no CP ,no shoulder or backpain OBJECTIVE: NAD. CV: RRR, no MRG lungs: CTAB ASSESSMENT AND PLAN: 52 y/o man with h/o [place], HTN, HLP, and chronic L upper back pain who presented with worsening L upper shoulder pain, and severe hypertension . He was found to have severe hypertension and renal failure 1- HTN emergency . resolved . BP improved - cont norvasc and losartan . 2- Chest pain: declined nuclear stress test, and he did not reach target HR with stress echo. - Echo reviewed. - ASA daily - cont statin - f/u with Dr. Callejas for further management - d/w randi Anderson 3- STACIA: likely due to severe HTn and possible pre-renal component . resolved dispo :DC home .
[2018-03-20] MEDS ORDERED: INSULIN (NOVOLOG MIX 70/30) 100 UNITS/ML MDV SQ ONE (17:59)
[2018-03-20] MEDS ORDERED: INSULIN (NOVOLOG) ASPART 100 UNITS/ML 10ML VIAL ONE (17:59)
[2018-03-20] MEDS ORDERED: PT OWN MED DRAWER 7, Y5N ONE (17:59)
--- NOTE | 2018-03-20 18:41 | DS ---
Physical Exam: SUBJECTIVE: Patient seen and examined this morning. No new complaints. OBJECTIVE: Vital Signs Period Temp Pulse Resp BP Sys/Laws Pulse Ox Last 24 Hr 97.6 F-98.1 F 61-75 18-18 143-150/81-92 98-99 PHYSICAL EXAM GENERAL: The patient is awake, alert, and fully oriented, in no acute distress. HEAD: NCAT. EYES: PERRL, EOMI ENT: Oropharynx clear without exudates, moist mucous membranes. NECK: Supple, No JVD LUNGS: Breath sounds equal, clear to auscultation bilaterally, no wheezes HEART: Regular rate and rhythm, S1, S2 without murmur. ABDOMEN: Soft, nontender, nondistended, normoactive bowel sounds, no guarding EXTREMITIES: 2+ pulses, no edema. NEUROLOGICAL: Cranial nerves II through XII grossly intact. Normal speech, gait not observed. SKIN: Warm, dry, No rashes or lesions noted. LABS Laboratory Last Values WBC 6.4 K/mm3 (4.0-10.0) 03/17/18 04:55 RBC 4.21 M/mm3 (4.00-5.60) 03/17/18 04:55 Hgb 13.3 GM/dL (11.7-16.9) 03/17/18 04:55 Hct 39.3 % (35.4-49) 03/17/18 04:55 MCV 93.4 fl (80-96) 03/17/18 04:55 MCH 31.5 pg (25.7-33.7) 03/17/18 04:55 MCHC 33.7 g/dl (32.0-35.9) 03/17/18 04:55 RDW 13.2 % (11.9-15.9) 03/17/18 04:55 Plt Count 172 K/MM3 (134-434) 03/17/18 04:55 MPV 10.2 fl (7.5-11.1) 03/17/18 04:55 Absolute Neuts (auto) 3.6 K/mm3 (1.5-8.0) 03/17/18 04:55 Neutrophils % 55.9 % (42.8-82.8) 03/17/18 04:55 Lymphocytes % 33.3 % (8-40) 03/17/18 04:55 Monocytes % 6.4 % (3.8-10.2) 03/17/18 04:55 Eosinophils % 3.8 % (0-4.5) 03/17/18 04:55 Basophils % 0.6 % (0-2.0) 03/17/18 04:55 Nucleated RBC % 0 % (0-0) 03/17/18 04:55 PT with INR 10.00 SEC (9.7-13.0) 03/17/18 04:55 INR 0.88 (0.83-1.09) 03/17/18 04:55 Sodium 138 mmol/L (136-145) 03/19/18 05:30 Potassium 4.1 mmol/L (3.5-5.1) 03/19/18 05:30 Chloride 102 mmol/L (98-107) 03/19/18 05:30 Carbon Dioxide 30 mmol/L (21-32) 03/19/18 05:30 Anion Gap 7 MMOL/L (8-16) L 03/19/18 05:30 BUN 15 mg/dL (7-18) 03/19/18 05:30 Creatinine 1.1 mg/dL (0.55-1.3) 03/19/18 05:30 Creat Clearance w eGFR > 60 (>60) 03/19/18 05:30 Random Glucose 97 mg/dL (74-106) 03/19/18 05:30 Hemoglobin A1c % 5.5 % (4.2-6.3) 03/17/18 04:55 Calcium 8.8 mg/dL (8.5-10.1) 03/19/18 05:30 Magnesium 2.2 mg/dL (1.8-2.4) 03/17/18 04:55 Total Bilirubin 0.3 mg/dL (0.2-1) 03/17/18 04:55 AST 14 U/L (15-37) L 03/17/18 04:55 ALT 34 U/L (13-61) 03/17/18 04:55 Alkaline Phosphatase 81 U/L (45-117) 03/17/18 04:55 Creatine Kinase 171 IU/L (26-308) 03/17/18 10:00 Creatine Kinase Index 0.7 % (0.0-5.0) 03/17/18 10:00 CK-MB (CK-2) 1.2 ng/mL (0.5-3.6) 03/17/18 10:00 Troponin I 0.02 ng/ml (0.00-0.05) 03/17/18 10:00 B-Natriuretic Peptide 63.7 pg/ml (5-125) 03/17/18 04:55 Total Protein 6.9 g/dl (6.4-8.2) 03/17/18 04:55 Albumin 3.8 g/dl (3.4-5.0) 03/17/18 04:55 Triglycerides 172 mg/dL (0-150) H 03/17/18 04:55 Cholesterol 201 mg/dL (50-200) H 03/17/18 04:55 Total LDL Cholesterol 128 mg/dL (5-100) H 03/17/18 04:55 HDL Cholesterol 45 mg/dL (40-60) 03/17/18 04:55 IMAGING: CXR: Essentially clear lungs. STRESS ECHO: LV Size, thickness and function are normal. Grade 1 diastolic dysfunction. RV is normal in size and function. Trace MR, PV Regurgitation, Trace Tricuspid regurgitation HOSPITAL COURSE: Date of Admission:03/17/18 Date of Discharge: 03/20/18 52 yr old man with HTN, hx of [place] present with sudden onset of left upper back pain radiating to his left arm that woke him from sleep at 3AM. The pain is reproducible and described as 10/10, continuous, aching, lasting until he received nitroglycerin by EMT. Patients back pain is chronic and appears musculoskeletal, reproducible with palpation and worsens with position. He had an episode of jaw pain with diaphoresis and sob that was concerning for cardiac etiology. Patient was admitted for hypertensive emergency (170/110, Cr 1.5, neck pain). EKG showed TWI in inferiolateral leads however an old EKG was not available for comparison. His troponin was 0.02 X2. Cardiology (Dr. Perez) was consulted. Patient declined a nuclear stress test and instead, a Stress echo was done but patient did not attain goal resulting in inconclusive results. A lipid panel was done (noted above) and he was started on Lipitor. Once his Cr improved, his home dose Losartan was restarted. Amlodipine was added to his regimen and his BP continued to improve to goal during his stay. His STACIA resolved, and patient was discharged with instructions to follow up with Dr. Callejas Minutes to complete discharge: 40 Discharge Summary Reason For Visit: CHEST PAIN Condition: Stable - Instructions Diet, Activity, Other Instructions: You came in with back pain and neck pain that was was concerning for a heart disease. You blood pressure was found to be very high and could have contributed to the chest pain follow with your lab asst dr. Callejas for further work up as your stress test was not adequate Medications: We added 10mg amlodipine daily for your blood pressure We added lipitor 40mg at night to help lower your cholesterol Continue taking losartan 100mg daily for blood pressure Continue taking your aspirin Follow up with your primary care physician within a week. Make sure to follow with your lab asst in 1 week for repeat stress test If you have new chest pain, shortness of breath, palpitations, please return to the nearest emergency room Referrals: Jose Callejas MD [Staff Physician] - 1 Week Disposition: HOME - Home Medications Comprehensive Discharge Medication List: Ambulatory Orders Aspirin [ASA -] 81 mg PO DAILY 03/17/18 Losartan Potassium [Cozaar] 100 mg PO DAILY 03/17/18 Amlodipine Besylate [Norvasc -] 10 mg PO DAILY #30 tablet 03/20/18 Atorvastatin Ca [Lipitor] 40 mg PO HS #30 tablet 03/20/18 This patient is new to me today: Yes Date on this admission: 03/21/18 Emergency Visit: Yes ED Registration Date: 03/17/18 Care time: The patient presented to the Emergency Department on the above date and was hospitalized for further evaluation of their emergent condition. Critical Care patient: No - Discharge Referral Referred to [facility] Med P.C.: No
== END 2018-03-20 18:26 | disposition home or self-care (01) ==
LOC: JER 04:32 → JERBED 06:19 → J4W 10:38
PROVIDERS: ADMIT Internal Medicine; ATTEND Internal Medicine
PROC: 3E033NZ Introduction of Analgesics, Hypnotics, Sedatives into Peripheral Vein, Percutaneous Approach (ICD-10-PCS; principal; 2018-03-17)
PROC: 3E033GC Introduction of Other Therapeutic Substance into Peripheral Vein, Percutaneous Approach (ICD-10-PCS; 2018-03-17)
PROC: 3E0337Z Introduction of Electrolytic and Water Balance Substance into Peripheral Vein, Percutaneous Approach (ICD-10-PCS; 2018-03-17)
PROC: 3E013GC Introduction of Other Therapeutic Substance into Subcutaneous Tissue, Percutaneous Approach (ICD-10-PCS; 2018-03-17)
DX: I16.0 Hypertensive urgency (principal); R07.89 Other chest pain; N17.9 Acute kidney failure, unspecified; I10 Essential (primary) hypertension; I25.2 Old myocardial infarction; R73.03 Prediabetes; R78.5 Finding of other psychotropic drug in blood; R00.1 Bradycardia, unspecified; I44.0 Atrioventricular block, first degree
CPT/HCPCS: 36415; 71046-TC-FY; 80048; 80053; 80061; 82550; 82553; 83036; 83721; 83735; 83880; 84484; 85025; 85610; 93005; 93010; 93306-TC; 93351; 96361; 96372; 96374; 96375; 96376; 99285-25; G0378; J1644; J7030

== ENCOUNTER 2022-03-16 10:57 | Emergency (ER) | payer OTHER ==
[2022-03-16 11:45] VITALS: BP 171/100; PULSE 64; RESP 17; TEMP 98.3; BMI 35.5
[2022-03-16] MEDS ORDERED: KETOROLAC TROMETHAMINE 30 MG/1 ML VIAL IM ONE (13:17)
[2022-03-16] MEDS ORDERED: CYCLOBENZAPRINE HCL 10 MG TABLET (FP) PO ONE (13:17)
[2022-03-16] MEDS ORDERED: CYCLOBENZAPRINE HCL 10 MG TABLET (FP) ONE (13:47)
[2022-03-16] MEDS ORDERED: KETOROLAC TROMETHAMINE 30 MG/1 ML VIAL ONE (13:48)
[2022-03-16 14:35] LABS: PH,URINE 7.5 (5.0-8.0); URINE APPEARANCE CLEAR; URINE BILIRUBIN NEGATIVE (NEGATIVE); URINE COLOR YELLOW; URINE GLUCOSE (UA) NEGATIVE (NEGATIVE); URINE KETONE NEGATIVE (NEGATIVE); URINE LEUK ESTERASE NEGATIVE (NEGATIVE); URINE NITRITE NEGATIVE (NEGATIVE); URINE PROTEIN NEGATIVE (NEGATIVE); URINE UROBILINOGEN 0.2 mg/dL (0.2-1.0)
== END 2022-03-16 18:20 | disposition home or self-care (01) ==
LOC: JER 10:57
PROC: 3E023GC Introduction of Other Therapeutic Substance into Muscle, Percutaneous Approach (ICD-10-PCS; principal; 2022-03-16)
DX: M54.50 Low back pain, unspecified (principal)
CPT/HCPCS: 72131-TC; 81003; 87086; 96372; 99284-25

== ENCOUNTER 2023-03-14 11:30 | Emergency (ER) | payer OTHER ==
[2023-03-14 11:34] VITALS: BP 153/93; PULSE 61; RESP 18; TEMP 98.2; BMI 34.8
[2023-03-14] MEDS ORDERED: SODIUM CHLORIDE 500 ML IV STA (12:40)
[2023-03-14] MEDS ORDERED: ACETAMINOPHEN 1000 MG/100 ML BAG IVPB ONE (12:41)
[2023-03-14] MEDS ORDERED: ACETAMINOPHEN INJECTION 100 ML IVPB ONE (12:50)
[2023-03-14 13:27] LABS: BASO % 0.8 % (0-2.0); EOS % 3.2 % (0-4.5); HEMATOCRIT 38.5 % (35.4-49); HEMOGLOBIN 13.4 GM/dL (11.7-16.9); LYMPH % 33.6 % (8-40); MCH 32.1 pg (25.7-33.7); MCHC 34.7 g/dl (32.0-35.9); MEAN CELL VOLUME 92.5 fl (80-96); MEAN PLT VOLUME 9.8 fl (7.5-11.1); MONO % 6.8 % (3.8-10.2); NEUT % 55.6 % (42.8-82.8); PLATELET COUNT 229 10^3/uL (134-434); RBC 4.16 M/mm3 (4.00-5.60); RDW 13.4 % (11.9-15.9); WHITE BLOOD COUNT 6.5 K/mm3 (4.0-10.0)
[2023-03-14 13:36] LABS: INR 1.03 (0.83-1.09)
[2023-03-14 13:38] LABS: ACTIVATED PTT 35.9 SECONDS (25.2-36.5)
[2023-03-14 13:58] LABS: POTASSIUM 4.6 mmol/L (3.5-5.1)
[2023-03-14 14:00] LABS: ALBUMIN 4.1 g/dl (3.4-5.0); CALCIUM 9.2 mg/dL (8.5-10.1)
[2023-03-14 14:01] LABS: BLOOD UREA NITROGEN 18.1 mg/dL (7-18)
[2023-03-14 14:03] LABS: CREATININE 1.3 mg/dL (0.55-1.3)
[2023-03-14 14:05] LABS: BILIRUBIN,TOTAL 0.6 mg/dL (0.2-1); TOT PROT 7.6 g/dl (6.4-8.2)
== END 2023-03-14 18:57 | disposition home or self-care (01) ==
LOC: JER 11:30
PROC: 3E033GC Introduction of Other Therapeutic Substance into Peripheral Vein, Percutaneous Approach (ICD-10-PCS; principal; 2023-03-14)
PROC: 3E0337Z Introduction of Electrolytic and Water Balance Substance into Peripheral Vein, Percutaneous Approach (ICD-10-PCS; 2023-03-14)
DX: K92.1 Melena (principal); R10.84 Generalized abdominal pain; K62.5 Hemorrhage of anus and rectum
CPT/HCPCS: 36415; 74177-TC; 80053; 85025; 85610; 85730; 99285-25; Q9967

== ENCOUNTER 2023-07-10 10:33 | Emergency (ER) | payer OTHER ==
[2023-07-10 11:13] VITALS: BP 152/84; PULSE 67; RESP 18; TEMP 98.6; BMI 28.3
[2023-07-10] MEDS ORDERED: ACETAMINOPHEN 500 MG TABLET (FP) PO ONE (12:25)
[2023-07-10] MEDS ORDERED: ACETAMINOPHEN 500 MG TABLET (FP) ONE (12:30)
== END 2023-07-10 14:36 | disposition home or self-care (01) ==
LOC: JER 10:33 → JERFT 10:33
DX: M25.561 Pain in right knee (principal)
CPT/HCPCS: 73562-TC-RT-FY; 76882-TC-RT-FY; 99284-25